=== PATIENT | female | born 1950 | race Caucasian/White ===

== ENCOUNTER 2018-07-11 22:10 | Inpatient (IN) | payer MEDICAID, MEDICARE, OTHER ==
[~2018-07-11] VITALS: Ht 162.6 cm; Wt 98.4 kg
[2018-07-12] VITALS (7 sets, daily range): BP systolic 133–152; BP diastolic 63–100
[2018-07-12] MEDS ORDERED: blood pressure med (01:06)
[2018-07-12] MEDS ORDERED: FLUO20CA16 PO (01:06)
[2018-07-12] MEDS ORDERED: folate (01:06)
[2018-07-12] MEDS ORDERED: B12/1TAB3 PO (01:06)
[2018-07-12] MEDS: ONDANSETRON PF 4 MG/2 ML VIAL. IV PRN ×2 (01:14→10:54)
[2018-07-12] MEDS: MORPHINE SULFATE 4 MG/ML VIAL. IV PRN ×5 (01:15→22:08)
[2018-07-12] MEDS: IV NORMAL SALINE 1000ML BAG 1,000 ML IV SCH ×3 (01:16→20:44)
[2018-07-12 04:23] LABS: HEMATOCRIT 39.5 % (36.0-47.0); HEMOGLOBIN 12.7 g/dL (12.0-15.5); RED BLOOD COUNT 4.47 x10^6/uL (3.50-5.40); RED CELL DISTRIBUTION WIDTH 15.1 % (11.5-14.5); WHITE BLOOD COUNT 14.9 x10^3/uL (4.0-11.0)
[2018-07-12 05:41] LABS: ALBUMIN 3.1 g/dL (3.4-5.0); ALBUMIN/GLOBULIN RATIO 0.7 (1.0-1.7); CALCIUM 9.1 mg/dL (8.5-10.1); CREATININE 1.2 mg/dL (0.6-1.0); GFR 44.7; POTASSIUM 4.7 mmol/L (3.5-5.1); TOTAL BILIRUBIN 1.5 mg/dL (0.2-1.0); TOTAL PROTEIN 7.8 g/dL (6.4-8.2)
--- NOTE | 2018-07-12 10:25 | PDOC2 ---
CONSULT Date of Consult Date of Consult DATE: 07/12/18 TIME: 10:21 Reason for Consult Reason for Consult: SBO Referring Physician Referring Physician: Meño Identification/Chief Complaint Chief Complaint abd pain Source Source: Chart review, Patient History of Present Illness Reason for Visit: 68 yo F with multiple colon resections, colostomy and takedown by Dr. Newsome , presents with c/o abd pain. Multiple previous episodes, treated with conservative measures, although has undergone previous xlaps. Admitted from [facility] ER and treated with NGT. Does report pain is improved today, but no flatus or stool. Past Medical History Cardiovascular: HTN Psych: Depression Past Surgical History Past Surgical History: Colectomy, Colon Resection, Other Family History Family History: No Significant Social History 1 pack per day Current Medications Current Medications Current Medications Sodium Chloride 1,000 ml @ 100 mls/hr Q10H IV Last administered on 07/12/18at 09:05; Start 07/12/18 at 00:45 Morphine Sulfate (Morphine Sulfate) 4 mg PRN Q4HRS PRN IV PAIN Last administered on 07/12/18at 06:56; Start 07/12/18 at 00:45 Ondansetron HCl (Zofran) 4 mg PRN Q4HRS PRN IV NAUSEA/VOMITING Last administered on 07/12/18at 01:14; Start 07/12/18 at 00:45 Active Scripts Active Reported [blood pressure med] [folate] Prozac (Fluoxetine Hcl) 20 Mg Capsule 1 Cap PO [id number] Folbic Rf Tablet (B12/Levomefolate Calcium/B-6) 1 Each Tablet 1 Each PO DAILY Allergies Allergies: Coded Allergies: No Known Drug Allergies (Unverified , 07/12/18) ROS Gastrointestinal: Yes Abdominal Pain Physical Exam General: Alert, Oriented X3, Cooperative, mild distress HEENT: Atraumatic Lungs: Normal air movement Abdomen: Soft, Other (mild TTP LLQ, obese, well healed surgical scars) Extremities: No clubbing, No cyanosis Skin: No rashes, No breakdown Neuro: Normal speech, Sensation intact Psych/Mental Status: Mental status NL, Mood NL Vitals VITALS Vital Signs Date Time Temp Pulse Resp B/P (MAP) Pulse Ox O2 Delivery O2 Flow Rate FiO2 07/12/18 07:35 Room Air 07/12/18 07:00 98.4 64 18 150/100 (117) 92 98.4 Labs Labs Laboratory Tests Test 07/12/18 03:25 White Blood Count 14.9 x10^3/uL (4.0-11.0) Red Blood Count 4.47 x10^6/uL (3.50-5.40) Hemoglobin 12.7 g/dL (12.0-15.5) Hematocrit 39.5 % (36.0-47.0) Mean Corpuscular Volume 89 fL (79-100) Mean Corpuscular Hemoglobin 29 pg (25-35) Mean Corpuscular Hemoglobin Concent 32 g/dL (31-37) Red Cell Distribution Width 15.1 % (11.5-14.5) Platelet Count 267 x10^3/uL (140-400) Sodium Level 143 mmol/L (136-145) Potassium Level 4.7 mmol/L (3.5-5.1) Chloride Level 105 mmol/L (98-107) Carbon Dioxide Level 28 mmol/L (21-32) Anion Gap 10 (6-14) Blood Urea Nitrogen 20 mg/dL (7-20) Creatinine 1.2 mg/dL (0.6-1.0) Estimated GFR (Cockcroft-Gault) 44.7 BUN/Creatinine Ratio 17 (6-20) Glucose Level 129 mg/dL (70-99) Calcium Level 9.1 mg/dL (8.5-10.1) Total Bilirubin 1.5 mg/dL (0.2-1.0) Aspartate Amino Transf (AST/SGOT) 33 U/L (15-37) Alanine Aminotransferase (ALT/SGPT) 25 U/L (14-59) Alkaline Phosphatase 129 U/L (46-116) Total Protein 7.8 g/dL (6.4-8.2) Albumin 3.1 g/dL (3.4-5.0) Albumin/Globulin Ratio 0.7 (1.0-1.7) Laboratory Tests Test 07/12/18 03:25 White Blood Count 14.9 x10^3/uL (4.0-11.0) Red Blood Count 4.47 x10^6/uL (3.50-5.40) Hemoglobin 12.7 g/dL (12.0-15.5) Hematocrit 39.5 % (36.0-47.0) Mean Corpuscular Volume 89 fL (79-100) Mean Corpuscular Hemoglobin 29 pg (25-35) Mean Corpuscular Hemoglobin Concent 32 g/dL (31-37) Red Cell Distribution Width 15.1 % (11.5-14.5) Platelet Count 267 x10^3/uL (140-400) Sodium Level 143 mmol/L (136-145) Potassium Level 4.7 mmol/L (3.5-5.1) Chloride Level 105 mmol/L (98-107) Carbon Dioxide Level 28 mmol/L (21-32) Anion Gap 10 (6-14) Blood Urea Nitrogen 20 mg/dL (7-20) Creatinine 1.2 mg/dL (0.6-1.0) Estimated GFR (Cockcroft-Gault) 44.7 BUN/Creatinine Ratio 17 (6-20) Glucose Level 129 mg/dL (70-99) Calcium Level 9.1 mg/dL (8.5-10.1) Total Bilirubin 1.5 mg/dL (0.2-1.0) Aspartate Amino Transf (AST/SGOT) 33 U/L (15-37) Alanine Aminotransferase (ALT/SGPT) 25 U/L (14-59) Alkaline Phosphatase 129 U/L (46-116) Total Protein 7.8 g/dL (6.4-8.2) Albumin 3.1 g/dL (3.4-5.0) Albumin/Globulin Ratio 0.7 (1.0-1.7) Images Images CT report from [facility] demonstrates evidence of multiple bowel resections and SBO Assessment/Plan Assessment/Plan SBO agree with NGT and supportive care will attempt to avoid surgery, given suspected hostile abd. if not improved by tomorrow, plan SBFT. Thanks for consult! MARNI AGUIAR MD Jul 12, 2018 10:25
--- NOTE | 2018-07-12 10:58 | HP ---
ADMIT DATE: 07/12/2018 HISTORY OF PRESENT ILLNESS: The patient is a 68-year-old female patient who presented to [facility] Emergency Room with a complaint of recurrent bouts of nausea, vomiting and abdominal pain that started about 24 hours prior to her arrival to the Emergency Room. She has had about 10 episodes of nonbloody vomiting, constant nausea and generalized abdominal pain. She has had a bowel movement before all the symptoms started and since then, she did not have any bowel movement or passed gas. The patient has had more than 10 surgeries and has 2 episodes of bowel obstruction due to adhesions, requiring exploration and adhesiolysis. She was evaluated in the Emergency Room of [facility] and was transferred to [facility] as her CT scan of the abdomen showed that the patient has small-bowel obstruction with transition point most likely in the distal small bowel, proximal to the ileocolic anastomosis. She was kept n.p.o. and has had an NG tube to intermittent suction, started on IV fluid, antiemetic and pain medication. PAST MEDICAL HISTORY: Significant for hypertension, hypothyroidism and bilateral cataract as well as bilateral carpal tunnel syndrome. PAST SURGICAL HISTORY: Significant for , exploratory laparotomy and adhesiolysis, cholecystectomy, appendectomy, total abdominal hysterectomy and bilateral salpingo-oophorectomy. She has had colostomy with revision and takedown, esophagogastroduodenoscopy, colonoscopy as well as carpal tunnel release. ALLERGIES: She has no known drug allergies. MEDICATIONS: She was on the following medications: She was on fluoxetine for Prozac 20 mg once a day. He was on folic acid 1 tablet once a day. FAMILY HISTORY: She has 2 brothers, . They were younger and one of a rare cancer and the other of myocardial infarction. She has 2 brothers and 1 sister still alive and healthy. Her father at the age of 60 because of lung cancer. Mother at the age of 64 because of diabetes complication. SOCIAL HISTORY: She is . She smokes 4 cigarettes a day. She drinks alcohol occasionally. Currently on disability. She has 2 daughters and one son. REVIEW OF SYSTEMS: The patient has had bilateral cataracts and was scheduled to have cataract extraction. Denied any glaucoma or macular degeneration. Denied any earache, tinnitus or sensorineural deafness. Denied nosebleeds, stuffy nose or postnasal drip. Denied any sore throat, sore tongue, toothache, hoarseness of voice or difficulty swallowing. She has obviously recurrent bouts of nausea, vomiting and abdominal pain. Constipation and had not passed any gas. PHYSICAL EXAMINATION: GENERAL: On arrival to the Emergency Room, she was obviously in pain and was in mild distress, but no pallor, jaundice or cyanosis from thyromegaly. No jugular venous distention. No lower limb edema. VITAL SIGNS: Her heart rate was 79, blood pressure was 143/66, temperature was 98.6, respiratory rate was 18 and oxygen saturation was 93%. HEENT: Examination of the head, eyes, ears, nose and throat showed normocephalic, atraumatic. She has had an NG tube to the left nostril to intermittent suction. NECK: Supple. HEART: Showed normal first and second heart sounds. No gallop, rub or murmur. CHEST: Clear to auscultation. No crepitation or rhonchi. ABDOMEN: Distended, soft and nontender. No guarding or rigidity. No organomegaly. All hernial orifices intact. Bowel sounds normal. NEUROLOGIC: She was awake, alert, responding appropriately. All cranial nerves intact. She moved extremities without difficulty. She normally ambulates without assistance or assistive devices. LABORATORY DATA: Her lab work this morning showed a white cell count 14,900, hemoglobin 12.7, hematocrit 39, MCV 89 and platelet count of 267,000. Her chemistry showed a serum sodium 143, potassium 4.7, chloride 105, bicarbonate 28, anion gap of 10, BUN 20, creatinine 1.2, estimated GFR was 44 mL per minute, her glucose 129 and calcium was 9.1. Total bilirubin is 1.5. AST and ALT were normal. Alkaline phosphatase slightly elevated. Her total protein was 7.8. Albumin was 2.1. Her CT scan showed small-bowel obstruction with transition point most likely in the distal small bowel, proximal to the ileocolic anastomosis. SUMMARY: The patient was kept n.p.o. with NG tube to suction, IV fluid, antiemetic and pain medication. We have consulted the surgical team. We will monitor her lab work closely and she spiked her temperature, we will start her on IV antibiotic. LAURIE LATHAM MD DR: ADRIANA/jac JOB#: [id number] / [id number]
[2018-07-12] MEDS: PIPERACILLIN/TAZOBACTAM 3.375 GM in IV NORMAL SALINE 50ML 50 ML IV SCH ×2 (14:00→22:08)
[2018-07-13 03:00] VITALS: BP 168/86
[2018-07-13 04:32] LABS: BASO % 0 % (0-3); EOS # 0.1 x10^3/uL (0.0-0.7); EOS % 1 % (0-3); HEMATOCRIT 36.1 % (36.0-47.0); HEMOGLOBIN 11.9 g/dL (12.0-15.5); LYMPH # 2.5 x10^3/uL (1.0-4.8); LYMPH % 29 % (24-48); MEAN CORPUSCULAR HEMOGLOBIN 29 pg (25-35); MEAN CORPUSCULAR HGB CONC 33 g/dL (31-37); MEAN CORPUSCULAR VOLUME 89 fL (79-100); MONO % 12 % (0-9); NEUT # 4.9 x10^3uL (1.8-7.7); NEUT % 58 % (31-73); PLATELET COUNT 205 x10^3/uL (140-400); RED BLOOD COUNT 4.08 x10^6/uL (3.50-5.40); RED CELL DISTRIBUTION WIDTH 15.4 % (11.5-14.5); WHITE BLOOD COUNT 8.6 x10^3/uL (4.0-11.0)
[2018-07-13 04:59] LABS: ALBUMIN 2.8 g/dL (3.4-5.0); ALBUMIN/GLOBULIN RATIO 0.7 (1.0-1.7); CALCIUM 8.3 mg/dL (8.5-10.1); CREATININE 1.5 mg/dL (0.6-1.0); GFR 34.5; POTASSIUM 4.5 mmol/L (3.5-5.1); TOTAL BILIRUBIN 1.8 mg/dL (0.2-1.0)
[2018-07-13] MEDS: MORPHINE SULFATE 4 MG/ML VIAL. IV PRN ×4 (05:38→23:18)
[2018-07-13] MEDS: PIPERACILLIN/TAZOBACTAM 3.375 GM in IV NORMAL SALINE 50ML 50 ML IV SCH ×3 (05:39→22:30)
[2018-07-13] MEDS: IV NORMAL SALINE 1000ML BAG 1,000 ML IV SCH ×3 (05:42→23:19)
[2018-07-13 07:00] VITALS: BP 148/65
--- NOTE | 2018-07-13 07:24 | RAD ---
KUB: INDICATION: NG tube placement. FINDINGS: NG tube is noted with its tip curled in the left upper quadrant of the abdomen consistent with tip projected in the fundus of the stomach. The bowel gas pattern is nonspecific with no evidence of bowel structure or ileus. IMPRESSION: NG tube tip projected over left upper quadrant of abdomen consistent with positioning in the fundus of the stomach. Nonspecific bowel gas pattern with no evidence of bowel obstruction or ileus. Electronically signed by: KRISTI DUKE MD (07/13/2018 7:21 AM) [facility]
--- NOTE | 2018-07-13 08:27 | PDOC ---
SURGICAL PROGRESS NOTE Subjective Pt reports feeling like "she got hit by a truck", but stomach feels better, passed some flatus and stool Vital Signs Vital Signs Date Time Temp Pulse Resp B/P (MAP) Pulse Ox O2 Delivery O2 Flow Rate FiO2 07/13/18 07:00 98.8 73 18 148/65 (92) 93 Room Air 98.8 I&O Intake and Output 07/13/18 06:59 Output Total 600 ml Balance -600 ml Output Gastric Drainage Total 600 ml # Voids 6 # Bowel Movements 2 General: Alert, Oriented X3, Cooperative, No acute distress Abdomen: Soft, No tenderness Labs Laboratory Tests Test 07/12/18 03:25 07/13/18 03:55 White Blood Count 14.9 x10^3/uL (4.0-11.0) 8.6 x10^3/uL (4.0-11.0) Red Blood Count 4.47 x10^6/uL (3.50-5.40) 4.08 x10^6/uL (3.50-5.40) Hemoglobin 12.7 g/dL (12.0-15.5) 11.9 g/dL (12.0-15.5) Hematocrit 39.5 % (36.0-47.0) 36.1 % (36.0-47.0) Mean Corpuscular Volume 89 fL (79-100) 89 fL (79-100) Mean Corpuscular Hemoglobin 29 pg (25-35) 29 pg (25-35) Mean Corpuscular Hemoglobin Concent 32 g/dL (31-37) 33 g/dL (31-37) Red Cell Distribution Width 15.1 % (11.5-14.5) 15.4 % (11.5-14.5) Platelet Count 267 x10^3/uL (140-400) 205 x10^3/uL (140-400) Sodium Level 143 mmol/L (136-145) 145 mmol/L (136-145) Potassium Level 4.7 mmol/L (3.5-5.1) 4.5 mmol/L (3.5-5.1) Chloride Level 105 mmol/L (98-107) 108 mmol/L (98-107) Carbon Dioxide Level 28 mmol/L (21-32) 26 mmol/L (21-32) Anion Gap 10 (6-14) 11 (6-14) Blood Urea Nitrogen 20 mg/dL (7-20) 35 mg/dL (7-20) Creatinine 1.2 mg/dL (0.6-1.0) 1.5 mg/dL (0.6-1.0) Estimated GFR (Cockcroft-Gault) 44.7 34.5 BUN/Creatinine Ratio 17 (6-20) 23 (6-20) Glucose Level 129 mg/dL (70-99) 114 mg/dL (70-99) Calcium Level 9.1 mg/dL (8.5-10.1) 8.3 mg/dL (8.5-10.1) Total Bilirubin 1.5 mg/dL (0.2-1.0) 1.8 mg/dL (0.2-1.0) Aspartate Amino Transf (AST/SGOT) 33 U/L (15-37) 24 U/L (15-37) Alanine Aminotransferase (ALT/SGPT) 25 U/L (14-59) 19 U/L (14-59) Alkaline Phosphatase 129 U/L (46-116) 107 U/L (46-116) Total Protein 7.8 g/dL (6.4-8.2) 7.0 g/dL (6.4-8.2) Albumin 3.1 g/dL (3.4-5.0) 2.8 g/dL (3.4-5.0) Albumin/Globulin Ratio 0.7 (1.0-1.7) 0.7 (1.0-1.7) Neutrophils (%) (Auto) 58 % (31-73) Lymphocytes (%) (Auto) 29 % (24-48) Monocytes (%) (Auto) 12 % (0-9) Eosinophils (%) (Auto) 1 % (0-3) Basophils (%) (Auto) 0 % (0-3) Neutrophils # (Auto) 4.9 x10^3uL (1.8-7.7) Lymphocytes # (Auto) 2.5 x10^3/uL (1.0-4.8) Monocytes # (Auto) 1.0 x10^3/uL (0.0-1.1) Eosinophils # (Auto) 0.1 x10^3/uL (0.0-0.7) Basophils # (Auto) 0.0 x10^3/uL (0.0-0.2) Lactate Dehydrogenase 123 U/L (81-234) Laboratory Tests Test 07/13/18 03:55 White Blood Count 8.6 x10^3/uL (4.0-11.0) Red Blood Count 4.08 x10^6/uL (3.50-5.40) Hemoglobin 11.9 g/dL (12.0-15.5) Hematocrit 36.1 % (36.0-47.0) Mean Corpuscular Volume 89 fL (79-100) Mean Corpuscular Hemoglobin 29 pg (25-35) Mean Corpuscular Hemoglobin Concent 33 g/dL (31-37) Red Cell Distribution Width 15.4 % (11.5-14.5) Platelet Count 205 x10^3/uL (140-400) Neutrophils (%) (Auto) 58 % (31-73) Lymphocytes (%) (Auto) 29 % (24-48) Monocytes (%) (Auto) 12 % (0-9) Eosinophils (%) (Auto) 1 % (0-3) Basophils (%) (Auto) 0 % (0-3) Neutrophils # (Auto) 4.9 x10^3uL (1.8-7.7) Lymphocytes # (Auto) 2.5 x10^3/uL (1.0-4.8) Monocytes # (Auto) 1.0 x10^3/uL (0.0-1.1) Eosinophils # (Auto) 0.1 x10^3/uL (0.0-0.7) Basophils # (Auto) 0.0 x10^3/uL (0.0-0.2) Sodium Level 145 mmol/L (136-145) Potassium Level 4.5 mmol/L (3.5-5.1) Chloride Level 108 mmol/L (98-107) Carbon Dioxide Level 26 mmol/L (21-32) Anion Gap 11 (6-14) Blood Urea Nitrogen 35 mg/dL (7-20) Creatinine 1.5 mg/dL (0.6-1.0) Estimated GFR (Cockcroft-Gault) 34.5 BUN/Creatinine Ratio 23 (6-20) Glucose Level 114 mg/dL (70-99) Calcium Level 8.3 mg/dL (8.5-10.1) Total Bilirubin 1.8 mg/dL (0.2-1.0) Aspartate Amino Transf (AST/SGOT) 24 U/L (15-37) Alanine Aminotransferase (ALT/SGPT) 19 U/L (14-59) Alkaline Phosphatase 107 U/L (46-116) Lactate Dehydrogenase 123 U/L (81-234) Total Protein 7.0 g/dL (6.4-8.2) Albumin 2.8 g/dL (3.4-5.0) Albumin/Globulin Ratio 0.7 (1.0-1.7) Problem List SBO, clinically improved, await XR from today will clamp NGT and try clears MARNI AGUIAR MD Jul 13, 2018 08:27
--- NOTE | 2018-07-13 08:48 | RAD ---
EXAM: Abdomen, single view. HISTORY: Nasogastric tube placement. COMPARISON: Radiograph obtained earlier on the same date. FINDINGS: A frontal view of the abdomen is obtained. There is a nasogastric tube within the proximal stomach with the side port at or near the gastroesophageal junction. There are prominent air-filled loops of bowel throughout the abdomen. IMPRESSION: 1. Nasogastric tube within the proximal stomach with the side-port at or near the gastroesophageal junction. 2. Prominent air-filled bowel throughout the abdomen. This is stable compared to the prior study. Electronically signed by: Adelaida Guzman MD (07/13/2018 8:45 AM) [place] [id number]
[2018-07-13 11:00] VITALS: BP 134/52
[2018-07-13 15:30] VITALS: BP 144/57
[2018-07-13 19:30] VITALS: BP 141/57
--- NOTE | 2018-07-13 19:39 | PN ---
DATE: 07/13/2018 SUBJECTIVE: The patient is resting slightly propped up in bed, in no apparent distress. On questioning her, she said she passed just gas, has not had any bowel movement. Her main complaint is sore throat, because of the NG tube which was clamped. She was seen by the surgeon and started her on clear liquid diet. PHYSICAL EXAMINATION: GENERAL: When I examined her, she looked well and was clearly in no apparent respiratory distress, pale, but no jaundice, cyanosis or thyromegaly. No jugular venous distention. No lower limb edema. VITAL SIGNS: Her heart rate was 73, blood pressure 148/65, temperature was 98.8, respiratory rate was 18 and oxygen saturation was 93%. HEAD, EYES, EARS, NOSE AND THROAT: Normocephalic, atraumatic. NECK: Supple. HEART: Normal first and second heart sounds. No gallop, rub or murmur. CHEST: Clear to auscultation. No crepitation or rhonchi. ABDOMEN: Distended, soft, nontender with audible bowel sounds. NEUROLOGIC: She is awake, alert, responding appropriately. All cranial nerves intact. She moves extremities without difficulty. Her intake and output are incompletely recorded. LABORATORY DATA: This morning showed serum sodium of 145, potassium 4.5, chloride 108, bicarbonate 26, anion gap of 11, BUN 35, creatinine 1.5, estimated GFR was 34 mL per minute. Her glucose was 114, calcium was 8.3. Total bilirubin is 1.8. AST, ALT, alkaline phosphatase were normal. Total protein 7, albumin 2.8. Her white cell count was 8.6, hemoglobin 12, hematocrit 36, MCV 89, and a platelet count of 205,000. ASSESSMENT: Multiple bowel resections and small-bowel obstruction. The patient had passed gas. Her NG tube was clamped. She has also acute on chronic kidney injury. Her creatinine has risen from 1.2-1.5 and BUN has risen from 20-35. I will probably increase her IV fluid to 125 and decide on further management accordingly. LAURIE LATHAM MD DR: ADRIANA/jac JOB#: [id number] / [id number]
[2018-07-13] MEDS: LACTOBACILLUS RHAMNOSUS GG 1 CAPSULE. PO SCH (21:00)
[2018-07-13 23:25] VITALS: BP 163/65
[2018-07-14] VITALS (7 sets, daily range): BP systolic 94–165; BP diastolic 53–69
[2018-07-14 05:06] LABS: GFR 55.1; POTASSIUM 3.7 mmol/L (3.5-5.1)
[2018-07-14] MEDS: PIPERACILLIN/TAZOBACTAM 3.375 GM in IV NORMAL SALINE 50ML 50 ML IV SCH ×3 (05:53→20:19)
[2018-07-14] MEDS: IV NORMAL SALINE 1000ML BAG 1,000 ML IV SCH (07:28)
[2018-07-14] MEDS: LACTOBACILLUS RHAMNOSUS GG 1 CAPSULE. PO SCH ×2 (08:25→20:18)
[2018-07-14] MEDS: POTASSIUM CL 40MEQ D5-0.45NACL 1,000 ML IV SCH ×2 (09:09→18:18)
[2018-07-14] MEDS: MORPHINE SULFATE 4 MG/ML VIAL. IV PRN ×3 (09:09→20:17)
--- NOTE | 2018-07-14 10:48 | PDOC ---
HALEY SANDHU ASSISTANT PRODUCT MANAGER 07/14/18 1047: SURGICAL PROGRESS NOTE Subjective some upper abdominal pain reports some flatus NG clamped, bothers throat taking some clears Vital Signs Vital Signs Date Time Temp Pulse Resp B/P (MAP) Pulse Ox O2 Delivery O2 Flow Rate FiO2 07/14/18 09:39 18 Room Air 07/14/18 07:00 97.7 63 165/53 (90) 94 97.7 I&O Intake and Output 07/14/18 07:00 Intake Total 645 ml Balance 645 ml Intake Oral 645 ml # Voids 8 General: Alert, Oriented X3, Cooperative, No acute distress HEENT: Other (ng in place) Abdomen: Soft, Other (difficult to determine if distended, large abdomen) Labs Laboratory Tests Test 07/13/18 03:55 07/14/18 03:50 White Blood Count 8.6 x10^3/uL (4.0-11.0) Red Blood Count 4.08 x10^6/uL (3.50-5.40) Hemoglobin 11.9 g/dL (12.0-15.5) Hematocrit 36.1 % (36.0-47.0) Mean Corpuscular Volume 89 fL (79-100) Mean Corpuscular Hemoglobin 29 pg (25-35) Mean Corpuscular Hemoglobin Concent 33 g/dL (31-37) Red Cell Distribution Width 15.4 % (11.5-14.5) Platelet Count 205 x10^3/uL (140-400) Neutrophils (%) (Auto) 58 % (31-73) Lymphocytes (%) (Auto) 29 % (24-48) Monocytes (%) (Auto) 12 % (0-9) Eosinophils (%) (Auto) 1 % (0-3) Basophils (%) (Auto) 0 % (0-3) Neutrophils # (Auto) 4.9 x10^3uL (1.8-7.7) Lymphocytes # (Auto) 2.5 x10^3/uL (1.0-4.8) Monocytes # (Auto) 1.0 x10^3/uL (0.0-1.1) Eosinophils # (Auto) 0.1 x10^3/uL (0.0-0.7) Basophils # (Auto) 0.0 x10^3/uL (0.0-0.2) Sodium Level 145 mmol/L (136-145) 144 mmol/L (136-145) Potassium Level 4.5 mmol/L (3.5-5.1) 3.7 mmol/L (3.5-5.1) Chloride Level 108 mmol/L (98-107) 109 mmol/L (98-107) Carbon Dioxide Level 26 mmol/L (21-32) 26 mmol/L (21-32) Anion Gap 11 (6-14) 9 (6-14) Blood Urea Nitrogen 35 mg/dL (7-20) 23 mg/dL (7-20) Creatinine 1.5 mg/dL (0.6-1.0) 1.0 mg/dL (0.6-1.0) Estimated GFR (Cockcroft-Gault) 34.5 55.1 BUN/Creatinine Ratio 23 (6-20) Glucose Level 114 mg/dL (70-99) 78 mg/dL (70-99) Calcium Level 8.3 mg/dL (8.5-10.1) 8.0 mg/dL (8.5-10.1) Total Bilirubin 1.8 mg/dL (0.2-1.0) Aspartate Amino Transf (AST/SGOT) 24 U/L (15-37) Alanine Aminotransferase (ALT/SGPT) 19 U/L (14-59) Alkaline Phosphatase 107 U/L (46-116) Lactate Dehydrogenase 123 U/L (81-234) Total Protein 7.0 g/dL (6.4-8.2) Albumin 2.8 g/dL (3.4-5.0) Albumin/Globulin Ratio 0.7 (1.0-1.7) Laboratory Tests Test 07/14/18 03:50 Sodium Level 144 mmol/L (136-145) Potassium Level 3.7 mmol/L (3.5-5.1) Chloride Level 109 mmol/L (98-107) Carbon Dioxide Level 26 mmol/L (21-32) Anion Gap 9 (6-14) Blood Urea Nitrogen 23 mg/dL (7-20) Creatinine 1.0 mg/dL (0.6-1.0) Estimated GFR (Cockcroft-Gault) 55.1 Glucose Level 78 mg/dL (70-99) Calcium Level 8.0 mg/dL (8.5-10.1) Problem List will check xrays, if no significant distention dc ng MARNI AGUIAR MD 07/14/18 1136: SURGICAL PROGRESS NOTE Assessment/Plan Pt seen and examined. Agree with Ms. sandhu's note Pt with c/o NGT, no N/V with NGT clamped by a day, passing flatus, small stool abd soft, obese, NTTP KUB report pending, but appears stable will d/c NGT and continue clears if pt does not tolerate, may need to consider SBFT poor surgical candidate, given multiple previous surgeries HALEY SANDHU APRN Jul 14, 2018 10:47 MARNI AGUIAR MD Jul 14, 2018 11:36
--- NOTE | 2018-07-14 17:42 | RAD ---
Portable AP supine view of the abdomen with upright view Clinical indications: Small bowel obstruction. Follow up study. COMPARISON: July 13, 2018. IMPRESSION: Dilated small bowel loops are again noted centrally which are unchanged. Small air-fluid levels are seen. No free to peritoneal air is seen. NG tube tip is seen within the fundus of the stomach. IMPRESSION: Unchanged small bowel obstruction. Electronically signed by: Sonny Levy MD (07/14/2018 5:39 PM) [facility]
--- NOTE | 2018-07-14 21:33 | PN ---
DATE: 07/14/2018 SUBJECTIVE: The patient is sitting slightly propped up in bed, no apparent distress. Her NG tube is still clamped. She said that she has passed gas; although, she has not had any bowel movement. The pain is generally much better, although she continued to be tender around the umbilical area. She denied any nausea or vomiting. OBJECTIVE: GENERAL: When I examined her, she looked well and was clearly in no apparent respiratory distress. No pallor, jaundice, cyanosis, or thyromegaly. No jugular venous distension. No lower limb edema. VITAL SIGNS: Her heart rate was 64, blood pressure was 155/58, temperature was 98.6, respiratory rate was 18 and oxygen saturation was 91%. HEAD, EYES, EARS, NOSE AND THROAT: Showed normocephalic, atraumatic. She had an NG tube through the right nostril. NECK: Supple. CARDIAC: Normal first and second heart sounds. No gallop, rub or murmur. CHEST: Clear to auscultation. No crepitation or rhonchi. ABDOMEN: Distended, soft with some tenderness around the umbilical area. No guarding or rigidity. No organomegaly. Bowel sounds normal. NEUROLOGIC: She is awake, alert, responding appropriately. All cranial nerves intact. She moves extremities without difficulty. She ambulates without assistance or assistive devices. Her intake over the last 24 hours was incompletely recorded, output was 600. LABORATORY DATA: Her lab work this morning showed that her white cell count was 8600, hemoglobin 12, hematocrit 36, MCV 89, and platelet count 205,000. Her chemistry showed a serum sodium 144, potassium 3.7, chloride 109, bicarbonate 26, anion gap of 9, BUN 23, creatinine 1, estimated GFR was 55 mL per minute. Her glucose was 78 and calcium was 8. ASSESSMENT: 1. Small-bowel obstruction, probably resolving. The patient is passing gas. The NG tube is clamped. 2. Acute on chronic kidney injury, resolving. Her creatinine came down from 1.5-1. 3. Hypokalemia. PLAN: My plan is to change IV fluid to D5 half normal with 40 mEq of potassium. LAURIE LATHAM MD DR: ADRIANA/jac JOB#: [id number] / [id number]
[2018-07-15] MEDS: MORPHINE SULFATE 4 MG/ML VIAL. IV PRN ×4 (01:29→18:45)
[2018-07-15 03:00] VITALS: BP 106/68
[2018-07-15] MEDS: POTASSIUM CL 40MEQ D5-0.45NACL 1,000 ML IV SCH ×2 (04:30→16:37)
[2018-07-15 04:54] LABS: HEMATOCRIT 30.2 % (36.0-47.0); HEMOGLOBIN 9.8 g/dL (12.0-15.5); RED BLOOD COUNT 3.42 x10^6/uL (3.50-5.40); RED CELL DISTRIBUTION WIDTH 14.2 % (11.5-14.5); WHITE BLOOD COUNT 5.6 x10^3/uL (4.0-11.0)
[2018-07-15] MEDS: PIPERACILLIN/TAZOBACTAM 3.375 GM in IV NORMAL SALINE 50ML 50 ML IV SCH (05:08)
[2018-07-15 05:14] LABS: CREATININE 0.8 mg/dL (0.6-1.0); GFR 71.3
[2018-07-15 07:00] VITALS: BP 153/66
--- NOTE | 2018-07-15 09:50 | PDOC ---
HALEY NOYOLA COMMUNITY ASSOCIATE 07/15/18 0950: SURGICAL PROGRESS NOTE Subjective some abdominal tightness this AM no emesis taking clears + flatus Vital Signs Vital Signs Date Time Temp Pulse Resp B/P (MAP) Pulse Ox O2 Delivery O2 Flow Rate FiO2 07/15/18 07:00 98.0 57 20 153/66 (95) 95 Room Air 98.0 07/14/18 20:17 96.0 I&O Intake and Output 07/15/18 06:59 Intake Total 1046 ml Balance 1046 ml IV Total 1046 ml # Voids 5 General: Alert, Oriented X3, Cooperative, No acute distress Abdomen: Soft, Other (ttp upper abdomen) Labs Laboratory Tests Test 07/14/18 03:50 07/15/18 03:25 Sodium Level 144 mmol/L (136-145) 140 mmol/L (136-145) Potassium Level 3.7 mmol/L (3.5-5.1) 4.0 mmol/L (3.5-5.1) Chloride Level 109 mmol/L (98-107) 108 mmol/L (98-107) Carbon Dioxide Level 26 mmol/L (21-32) 24 mmol/L (21-32) Anion Gap 9 (6-14) 8 (6-14) Blood Urea Nitrogen 23 mg/dL (7-20) 10 mg/dL (7-20) Creatinine 1.0 mg/dL (0.6-1.0) 0.8 mg/dL (0.6-1.0) Estimated GFR (Cockcroft-Gault) 55.1 71.3 Glucose Level 78 mg/dL (70-99) 111 mg/dL (70-99) Calcium Level 8.0 mg/dL (8.5-10.1) 8.0 mg/dL (8.5-10.1) White Blood Count 5.6 x10^3/uL (4.0-11.0) Red Blood Count 3.42 x10^6/uL (3.50-5.40) Hemoglobin 9.8 g/dL (12.0-15.5) Hematocrit 30.2 % (36.0-47.0) Mean Corpuscular Volume 88 fL (79-100) Mean Corpuscular Hemoglobin 29 pg (25-35) Mean Corpuscular Hemoglobin Concent 33 g/dL (31-37) Red Cell Distribution Width 14.2 % (11.5-14.5) Platelet Count 155 x10^3/uL (140-400) Laboratory Tests Test 07/15/18 03:25 White Blood Count 5.6 x10^3/uL (4.0-11.0) Red Blood Count 3.42 x10^6/uL (3.50-5.40) Hemoglobin 9.8 g/dL (12.0-15.5) Hematocrit 30.2 % (36.0-47.0) Mean Corpuscular Volume 88 fL (79-100) Mean Corpuscular Hemoglobin 29 pg (25-35) Mean Corpuscular Hemoglobin Concent 33 g/dL (31-37) Red Cell Distribution Width 14.2 % (11.5-14.5) Platelet Count 155 x10^3/uL (140-400) Sodium Level 140 mmol/L (136-145) Potassium Level 4.0 mmol/L (3.5-5.1) Chloride Level 108 mmol/L (98-107) Carbon Dioxide Level 24 mmol/L (21-32) Anion Gap 8 (6-14) Blood Urea Nitrogen 10 mg/dL (7-20) Creatinine 0.8 mg/dL (0.6-1.0) Estimated GFR (Cockcroft-Gault) 71.3 Glucose Level 111 mg/dL (70-99) Calcium Level 8.0 mg/dL (8.5-10.1) Assessment/Plan will continue clears today reeval in AM QIAN ALVAREZ MD 07/16/18 1217: SURGICAL PROGRESS NOTE Assessment/Plan Agree with above HALEY NOYOLA APRN Jul 15, 2018 09:50 QIAN ALVAREZ MD Jul 16, 2018 12:17
[2018-07-15] MEDS: LACTOBACILLUS RHAMNOSUS GG 1 CAPSULE. PO SCH ×2 (09:55→21:17)
[2018-07-15 11:00] VITALS: BP 150/59
[2018-07-15 15:00] VITALS: BP 161/63
[2018-07-15 19:30] VITALS: BP 176/62
[2018-07-15] MEDS: ONDANSETRON PF 4 MG/2 ML VIAL. IV PRN (20:04)
--- NOTE | 2018-07-15 20:27 | PN ---
DATE: 07/15/2018 SUBJECTIVE: The patient is resting slightly propped up in bed, in no apparent distress. She is awake, alert. Her NG tube was removed. She is now on a clear liquid diet. She has passed gas multiple times, has not had any bowel movement. She did have mild abdominal discomfort. PHYSICAL EXAMINATION: GENERAL: When I examined her, she looked pale, but no jaundice, cyanosis or thyromegaly. No jugular venous distension. No lower limb edema. VITAL SIGNS: Her heart rate was 58, blood pressure was 106/68, temperature was 99.1, respiratory rate was 18 and oxygen saturation was 93%. HEAD, EYES, EARS, NOSE AND THROAT: Showed normocephalic, atraumatic. NECK: Supple. HEART: Showed first and second heart sounds. No gallop, rub or murmur. CHEST: Clear to auscultation. No crepitation or rhonchi. ABDOMEN: Distended, soft with mild tenderness. No guarding or rigidity. No organomegaly. All hernial orifice intact. Bowel sounds normal. NEUROLOGIC: She is awake, alert, responding appropriately. All cranial nerves intact. She moves extremities without difficulty. She ambulates without assistance or assistive devices. Her intake and output are incompletely recorded. LABORATORY DATA: This morning showed a serum sodium 140, potassium 4, chloride 108, bicarbonate 24, anion gap of 8, BUN 10, creatinine 0.8, estimated GFR was 71 mL per minute. Her glucose 111, calcium was 8. White cell count was 5600, hemoglobin 10, hematocrit 30, MCV 88 and platelet count of 155,000. ASSESSMENT: 1. Small-bowel obstruction, resolving. The patient is passing gas. NG tube is removed. She is now on a clear liquid diet. 2. Acute on chronic kidney injury, resolving. Her creatinine is down from 1.5-0.8. 3. Hypokalemia, resolved. Her potassium is 4 mEq per liter. PLAN: To continue the IV fluid, continue with clear liquid diet and advance diet as per surgical team. LAURIE LATHAM MD DR: ADRIANA/jac JOB#: [id number] / [id number]
[2018-07-15] MEDS: AMOXICILLIN/K CLAV 875/125MG TABLET. PO SCH (21:17)
[2018-07-15 23:00] VITALS: BP 156/72
[2018-07-16] MEDS: MORPHINE SULFATE 4 MG/ML VIAL. IV PRN ×4 (00:37→19:36)
[2018-07-16] MEDS: POTASSIUM CL 40MEQ D5-0.45NACL 1,000 ML IV SCH ×2 (00:43→10:30)
[2018-07-16 03:15] VITALS: BP 161/54
[2018-07-16 07:00] VITALS: BP 183/63
[2018-07-16] MEDS: LACTOBACILLUS RHAMNOSUS GG 1 CAPSULE. PO SCH ×2 (08:42→21:00)
[2018-07-16] MEDS: AMOXICILLIN/K CLAV 875/125MG TABLET. PO SCH ×2 (08:42→21:00)
[2018-07-16] MEDS: ONDANSETRON PF 4 MG/2 ML VIAL. IV PRN ×3 (08:49→19:50)
--- NOTE | 2018-07-16 10:07 | PDOC ---
HALEY NOYOLA ADJUSTER 07/16/18 1007: SURGICAL PROGRESS NOTE Subjective more nausea and pain minimal flatus now feels more bloated Vital Signs Vital Signs Date Time Temp Pulse Resp B/P (MAP) Pulse Ox O2 Delivery O2 Flow Rate FiO2 07/16/18 09:12 Room Air 07/16/18 07:00 97.9 55 18 183/63 (103) 95 97.9 07/16/18 01:30 96.0 I&O Intake and Output 07/16/18 07:00 Intake Total 480 ml Balance 480 ml Intake Oral 480 ml # Voids 5 General: Alert, Oriented X3, Cooperative, No acute distress Abdomen: Soft, Other (tender upper abdomen) Labs Laboratory Tests Test 07/15/18 03:25 White Blood Count 5.6 x10^3/uL (4.0-11.0) Red Blood Count 3.42 x10^6/uL (3.50-5.40) Hemoglobin 9.8 g/dL (12.0-15.5) Hematocrit 30.2 % (36.0-47.0) Mean Corpuscular Volume 88 fL (79-100) Mean Corpuscular Hemoglobin 29 pg (25-35) Mean Corpuscular Hemoglobin Concent 33 g/dL (31-37) Red Cell Distribution Width 14.2 % (11.5-14.5) Platelet Count 155 x10^3/uL (140-400) Sodium Level 140 mmol/L (136-145) Potassium Level 4.0 mmol/L (3.5-5.1) Chloride Level 108 mmol/L (98-107) Carbon Dioxide Level 24 mmol/L (21-32) Anion Gap 8 (6-14) Blood Urea Nitrogen 10 mg/dL (7-20) Creatinine 0.8 mg/dL (0.6-1.0) Estimated GFR (Cockcroft-Gault) 71.3 Glucose Level 111 mg/dL (70-99) Calcium Level 8.0 mg/dL (8.5-10.1) Assessment/Plan NPO, start SBFt today QIAN ALVAREZ MD 07/16/18 1217: SURGICAL PROGRESS NOTE Assessment/Plan Agree with above HALEY NOYOLA APRN Jul 16, 2018 10:07 QIAN ALVAREZ MD Jul 16, 2018 12:17
[2018-07-16] MEDS ORDERED: CONTRAST GIVEN. MC PRN (10:15)
[2018-07-16] MEDS ORDERED: IOHEXOL 300 MG/ML 100ML VIAL. PO ONE (10:15)
[2018-07-16 15:00] VITALS: BP 190/72
--- NOTE | 2018-07-16 16:05 | RAD ---
Examination: Small bowel series HISTORY: History of small bowel obstruction. COMPARISON: Abdomen radiograph from 07/14/2018 FINDINGS: Sed Special Education Teacher image demonstrates distended and dilated small bowel loops. Contrast is identified in the stomach and small bowel. Dilated small bowel loops identified in the proximal and midportion. Some of the contrast extends into the colon by 60 minutes. IMPRESSION: Findings consistent with small bowel obstruction with dilated small bowel loops in the proximal and midportion. The site of obstruction is possibly in the right lower quadrant similar to recent CT scan. However, some of the contrast extends from the small bowel into the colon. Total fluoroscopic time 0.3 minutes. Total fluoroscopic images 2 Electronically signed by: Kirill Dietz MD (07/16/2018 4:02 PM) [facility]
[2018-07-16] MEDS ORDERED: BENZOCAINE ONE 20% MUCOSAL SPRAY. MM (17:00)
[2018-07-16] MEDS: ONDANSETRON ODT 4 MG TAB.RAPDIS. PO PRN (17:34)
[2018-07-16 19:00] VITALS: BP 128/60
[2018-07-16] MEDS: hydrALAZINE 20 MG/ML VIAL. IVP PRN (20:27)
--- NOTE | 2018-07-16 21:00 | PN ---
DATE: 07/16/2018 SUBJECTIVE: The patient is sitting slightly propped up in bed, in no apparent respiratory distress. She is awake, alert, and she stated that she had a rough night, had lot of abdominal pain, had also some nausea, but no vomiting. She has passed some flatus, but not much. No bowel movement yet. PHYSICAL EXAMINATION: GENERAL: When I examined her, she looked pale. No jaundiced or cyanosed. No thyromegaly. No jugular venous distension. No limb edema. VITAL SIGNS: Her heart rate was 59, blood pressure was 161/54. Her temperature was 98.6, respiratory rate was 16, and oxygen saturation was 95%. HEAD, EYES, EARS, NOSE AND THROAT: Showed normocephalic, atraumatic. NECK: Supple. HEART: Showed normal first and second heart sounds. No gallop, rub or murmur. CHEST: Clear to auscultation. No crepitation or rhonchi. ABDOMEN: Distended with tenderness mostly in the left lower quadrant. No guarding or rigidity. No organomegaly. Bowel sounds are audible. NEUROLOGIC: She is awake, alert, responding appropriately. All cranial nerves intact. She moves extremities without difficulty. Her intake over the last 24 hours was 1050. No output was recorded. LABORATORY DATA: As of this morning, her lab work showed white cell count 5600, hemoglobin 10, hematocrit 30, MCV 88 and platelet count of 155,000. Her chemistry showed that her serum sodium 140, potassium 4, chloride 108, bicarbonate 24, anion gap of 8, BUN 10, creatinine 0.8, estimated GFR was 71 mL per minute. Her glucose 111, calcium was 8. ASSESSMENT: 1. Small-bowel obstruction, resolving slowly. The patient continued to have abdominal pain, has had some nausea last night. Her NG tube was obviously removed. She continued to be on a clear liquid diet. 2. Acute on chronic kidney injury, resolving. Her creatinine is down from 1.5-0.8. 3. Hypokalemia, resolved. Her potassium is up to 4 mEq per liter. PLAN: To continue with IV fluid, continue with oral antibiotic, and continue with pain management. LAURIE LATHAM MD DR: ADRIANA/jac JOB#: [id number] / [id number]
[2018-07-16 22:52] VITALS: BP 180/77
[2018-07-17 02:43] VITALS: BP 157/66
[2018-07-17] MEDS: POTASSIUM CL 40MEQ D5-0.45NACL 1,000 ML IV SCH ×3 (03:23→17:34)
[2018-07-17 04:47] LABS: HEMATOCRIT 35.3 % (36.0-47.0); HEMOGLOBIN 11.6 g/dL (12.0-15.5); RED BLOOD COUNT 3.99 x10^6/uL (3.50-5.40); RED CELL DISTRIBUTION WIDTH 14.8 % (11.5-14.5); WHITE BLOOD COUNT 7.5 x10^3/uL (4.0-11.0)
[2018-07-17 05:09] LABS: CREATININE 0.8 mg/dL (0.6-1.0); GFR 71.3
[2018-07-17 05:10] LABS: POTASSIUM 4.2 mmol/L (3.5-5.1)
[2018-07-17 07:00] VITALS: BP 187/74
[2018-07-17] MEDS: hydrALAZINE 20 MG/ML VIAL. IVP PRN ×3 (07:41→19:49)
--- NOTE | 2018-07-17 08:39 | RAD ---
EXAM: Abdomen, 2 views. HISTORY: Small bowel obstruction. COMPARISON: 07/16/2018 FINDINGS: Frontal upright and supine views of the abdomen are obtained. There are distended contrast and air-filled loops of proximal and mid small bowel containing air-fluid levels on the upright view. There is slight decompression of the distal small bowel. Their is also contrast within the colon extending to the rectal vault. No clear transition point is seen. There is no free air. IMPRESSION: No significant change in distended loops of proximal and mid small bowel, with relative decompression of the distal small bowel. There has been interval transit of contrast into the colon. Electronically signed by: Adelaida Guzman MD (07/17/2018 8:36 AM) [id number]
[2018-07-17] MEDS: AMOXICILLIN/K CLAV 875/125MG TABLET. PO SCH ×2 (08:48→21:04)
[2018-07-17] MEDS: LACTOBACILLUS RHAMNOSUS GG 1 CAPSULE. PO SCH ×2 (08:48→21:05)
--- NOTE | 2018-07-17 10:36 | PDOC ---
HALEY NOYOLA GRAPPLER 07/17/18 1036: SURGICAL PROGRESS NOTE Subjective some loose stools was unable to place NG Vital Signs Vital Signs Date Time Temp Pulse Resp B/P (MAP) Pulse Ox O2 Delivery O2 Flow Rate FiO2 07/17/18 07:41 69 187/74 07/17/18 07:05 Room Air 07/17/18 07:00 98.2 18 97 98.2 I&O Intake and Output 07/17/18 06:59 Intake Total 220 ml Balance 220 ml Intake Oral 220 ml # Voids 6 # Bowel Movements 4 General: Alert, Oriented X3, Cooperative, No acute distress Abdomen: Soft, Other (tender upper abdomen ) Labs Laboratory Tests Test 07/17/18 03:55 White Blood Count 7.5 x10^3/uL (4.0-11.0) Red Blood Count 3.99 x10^6/uL (3.50-5.40) Hemoglobin 11.6 g/dL (12.0-15.5) Hematocrit 35.3 % (36.0-47.0) Mean Corpuscular Volume 89 fL (79-100) Mean Corpuscular Hemoglobin 29 pg (25-35) Mean Corpuscular Hemoglobin Concent 33 g/dL (31-37) Red Cell Distribution Width 14.8 % (11.5-14.5) Platelet Count 223 x10^3/uL (140-400) Sodium Level 144 mmol/L (136-145) Potassium Level 4.2 mmol/L (3.5-5.1) Chloride Level 107 mmol/L (98-107) Carbon Dioxide Level 24 mmol/L (21-32) Anion Gap 13 (6-14) Blood Urea Nitrogen 6 mg/dL (7-20) Creatinine 0.8 mg/dL (0.6-1.0) Estimated GFR (Cockcroft-Gault) 71.3 Glucose Level 114 mg/dL (70-99) Calcium Level 9.0 mg/dL (8.5-10.1) Laboratory Tests Test 07/17/18 03:55 White Blood Count 7.5 x10^3/uL (4.0-11.0) Red Blood Count 3.99 x10^6/uL (3.50-5.40) Hemoglobin 11.6 g/dL (12.0-15.5) Hematocrit 35.3 % (36.0-47.0) Mean Corpuscular Volume 89 fL (79-100) Mean Corpuscular Hemoglobin 29 pg (25-35) Mean Corpuscular Hemoglobin Concent 33 g/dL (31-37) Red Cell Distribution Width 14.8 % (11.5-14.5) Platelet Count 223 x10^3/uL (140-400) Sodium Level 144 mmol/L (136-145) Potassium Level 4.2 mmol/L (3.5-5.1) Chloride Level 107 mmol/L (98-107) Carbon Dioxide Level 24 mmol/L (21-32) Anion Gap 13 (6-14) Blood Urea Nitrogen 6 mg/dL (7-20) Creatinine 0.8 mg/dL (0.6-1.0) Estimated GFR (Cockcroft-Gault) 71.3 Glucose Level 114 mg/dL (70-99) Calcium Level 9.0 mg/dL (8.5-10.1) Problem List noted xrays some passage of contrast will review with MARNI Sepulveda MD 07/17/18 1415: SURGICAL PROGRESS NOTE Assessment/Plan Pt seen and examined. Agree with Ms. Noyola's note Pt reports feeling much better today, no significant pain, min nausea, multiple loose stools abd soft, NTTP, obese d/w pt operative intervention, but appropriates pt wishes to continue non operative management, which is appropriate will start clears. HALEY NOYOLA APRN Jul 17, 2018 10:36 MARNI AGUIAR MD Jul 17, 2018 14:15
[2018-07-17 11:00] VITALS: BP 150/54
[2018-07-17 15:00] VITALS: BP 181/62
[2018-07-17] MEDS: MORPHINE SULFATE 4 MG/ML VIAL. IV PRN ×3 (15:38→23:32)
[2018-07-17] MEDS ORDERED: HYDROmorphone 2 MG/ML VIAL IV PRN (16:45)
[2018-07-17] MEDS ORDERED: VANCOMYCIN PER PHARMACY MC PRN (16:45)
[2018-07-17] MEDS ORDERED: ONDANSETRON PF 4 MG/2 ML VIAL. IV PRN (16:45)
[2018-07-17] MEDS ORDERED: VANCOMYCIN 1.25 GM in IV NORMAL SALINE 250ML 250 ML IV SCH (16:45)
[2018-07-17] MEDS ORDERED: PIPERACILLIN/TAZOBACTAM 4.5 GM in IV NORMAL SALINE 100ML 100 ML IV SCH (18:00)
[2018-07-17 19:26] VITALS: BP 184/72
[2018-07-17] MEDS ORDERED: NIFE60TA14 PO (20:43)
[2018-07-17] MEDS ORDERED: AMLO2.5T5 PO (20:43)
[2018-07-17] MEDS ORDERED: NON FORMULARY ITEM PO SCH (21:00)
[2018-07-17] MEDS ORDERED: LACTOBACILLUS RHAMNOSUS GG 1 CAPSULE. PO SCH (21:00)
[2018-07-17] MEDS: amLODIPine BESYLATE 5 MG TABLET PO SCH (21:05)
[2018-07-17 23:29] VITALS: BP_SYST 175; BP_SYST 189; BP_DIAS 64; BP_DIAS 74
--- NOTE | 2018-07-18 02:09 | PN ---
DATE: 07/17/2018 SUBJECTIVE: The patient is resting slightly propped up in bed, in no apparent respiratory distress. She apparently has had multiple episodes of nausea, vomiting last night. We attempted to put an NG tube back, but she could not tolerate it; however, she is doing much better this morning. She has had at least 3 episodes of diarrhea and has denied any abdominal pain. Denied any nausea or vomiting. OBJECTIVE: GENERAL: When I examined her, she looked well and was clearly in no apparent respiratory distress, pale, not jaundiced, cyanosed. No thyromegaly. No jugular venous distension. No lower limb edema. VITAL SIGNS: Her heart rate was 67, blood pressure was 187/74, temperature was 98.2, respiratory rate was 18 and oxygen saturation was 97%. HEAD, EYES, EARS, NOSE AND THROAT: Showed normocephalic, atraumatic. NECK: Supple. HEART: Normal first and second sounds. No gallop, rub or murmur. CHEST: Showed central trachea, equal bilateral expansion, air entry, vesicular sounds. No crepitation or rhonchi. ABDOMEN: Distended, soft, nontender. NEUROLOGIC: She is awake, alert, responding appropriately. Her intake was 418, no output was recorded. LABORATORY DATA: As of this morning, her serum sodium was 144, potassium 4.2, chloride 107, bicarbonate 24, anion gap of 13, BUN 6, creatinine 0.8, estimated GFR was 71 mL per minute. Her glucose was 114 and calcium was 9. Her white cell count was 7500, hemoglobin 12, hematocrit 35, MCV 89 and platelet count 223,000. ASSESSMENT: 1. Small bowel obstruction. This seems to be resolving. She has had no abdominal pain this morning. She did have multiple episodes of nausea and vomiting yesterday and we have nearly place another NG tube; however, she could not tolerate it. 2. Acute on chronic kidney injury, resolving. Her creatinine is down from 1.5 to 0.8. 3. Hypokalemia, resolved. Potassium is up to 4 mEq per liter. PLAN: My plan is to await the surgical evaluation. Her blood pressures continue to be suboptimally controlled and I will reconcile all her medication. LAURIE LATHAM MD DR: ADRIANA/jac JOB#: [id number] / [id number]
[2018-07-18 03:25] VITALS: BP 148/63
[2018-07-18] MEDS: POTASSIUM CL 40MEQ D5-0.45NACL 1,000 ML IV SCH ×3 (04:11→22:43)
[2018-07-18 07:00] VITALS: BP 141/63
[2018-07-18] MEDS ORDERED: LIDOCAINE 1% PF 2 ML VIAL. ID PRN (07:00)
[2018-07-18] MEDS ORDERED: ONDANSETRON PF 4 MG/2 ML VIAL. IV PRN (07:00)
[2018-07-18] MEDS ORDERED: PROCHLORPERAZINE 10 MG/2 ML VIAL. IV PRN (07:00)
[2018-07-18] MEDS ORDERED: IV RINGERS,LACTATED 1000ML 1,000 ML IV SCH (07:00)
[2018-07-18] MEDS ORDERED: MORPHINE SULFATE 2 MG/ML VIAL. IV PRN (07:00)
[2018-07-18] MEDS ORDERED: HYDROmorphone 2 MG/ML VIAL IV PRN (07:00)
[2018-07-18] MEDS ORDERED: fentaNYL PF VIAL 100 MCG/2 ML VIAL IV PRN ×2 (07:00)
[2018-07-18] MEDS: FLUoxetine HCL 20 MG CAPSULE PO SCH (08:00)
[2018-07-18] MEDS: AMOXICILLIN/K CLAV 875/125MG TABLET. PO SCH ×2 (08:56→20:41)
[2018-07-18] MEDS: amLODIPine BESYLATE 5 MG TABLET PO SCH (08:56)
[2018-07-18] MEDS: LACTOBACILLUS RHAMNOSUS GG 1 CAPSULE. PO SCH ×2 (08:56→20:41)
[2018-07-18] MEDS ORDERED: NON FORMULARY ITEM (Nifedipine (Nifedipine Er) 90 MG) PO SCH (09:00)
--- NOTE | 2018-07-18 09:21 | PDOC ---
HALEY NOYOLA COFFEE SOMMELIER 07/18/18 0921: SURGICAL PROGRESS NOTE Subjective tolerated clears + flatus no bloating Vital Signs Vital Signs Date Time Temp Pulse Resp B/P (MAP) Pulse Ox O2 Delivery O2 Flow Rate FiO2 07/18/18 08:56 72 141/63 07/18/18 07:20 Room Air 07/18/18 07:00 98.1 16 96 98.1 07/17/18 20:00 96.0 I&O Intake and Output 07/18/18 07:00 Intake Total 300 ml Balance 300 ml Intake Oral 300 ml # Voids 2 General: Alert, Oriented X3, Cooperative, No acute distress Abdomen: Soft, Other (ND, NTTP) Labs Laboratory Tests Test 07/17/18 03:55 White Blood Count 7.5 x10^3/uL (4.0-11.0) Red Blood Count 3.99 x10^6/uL (3.50-5.40) Hemoglobin 11.6 g/dL (12.0-15.5) Hematocrit 35.3 % (36.0-47.0) Mean Corpuscular Volume 89 fL (79-100) Mean Corpuscular Hemoglobin 29 pg (25-35) Mean Corpuscular Hemoglobin Concent 33 g/dL (31-37) Red Cell Distribution Width 14.8 % (11.5-14.5) Platelet Count 223 x10^3/uL (140-400) Sodium Level 144 mmol/L (136-145) Potassium Level 4.2 mmol/L (3.5-5.1) Chloride Level 107 mmol/L (98-107) Carbon Dioxide Level 24 mmol/L (21-32) Anion Gap 13 (6-14) Blood Urea Nitrogen 6 mg/dL (7-20) Creatinine 0.8 mg/dL (0.6-1.0) Estimated GFR (Cockcroft-Gault) 71.3 Glucose Level 114 mg/dL (70-99) Calcium Level 9.0 mg/dL (8.5-10.1) Problem List KUB pending if improved, possible advance diet MARNI AGUIAR MD 07/18/18 1158: SURGICAL PROGRESS NOTE Assessment/Plan Pt seen and examined. Agree with Ms. Noyola's note Pt feels better, min pain, no n/v, passing flatus and stools abd soft, obese, NTTP await KUB, but will avoid surgery today. HALEY NOYOLA APRN Jul 18, 2018 09:21 MARNI AGUIAR MD Jul 18, 2018 11:58
[2018-07-18 11:00] VITALS: BP 150/61
[2018-07-18] MEDS ORDERED: NIFE90TA9 PO (13:11)
[2018-07-18] MEDS: MORPHINE SULFATE 4 MG/ML VIAL. IV PRN ×3 (13:13→22:46)
[2018-07-18 15:00] VITALS: BP 172/67
[2018-07-18] MEDS: hydrALAZINE 20 MG/ML VIAL. IVP PRN (15:35)
--- NOTE | 2018-07-18 16:36 | RAD ---
EXAM: Supine AP view of the abdomen DATE: 07/18/2018 1:27 PM INDICATION: REACESS SM BOWEL OBSTRUCTION COMPARISON: No Prior FINDINGS: Prominent loops of small and large bowel are seen, although there is no abnormal small or large bowel dilatation. Moderate colonic stool content. No abnormal soft tissue mass effect. No suspicious calcifications are seen. Evaluation for free intraperitoneal gas is limited on this supine exam. IMPRESSION: 1. Interval decrease in size of the small bowel loops, now without evidence for bowel obstruction. Electronically signed by: Po Chaudhary MD (07/18/2018 4:33 PM) [facility]
[2018-07-18 19:00] VITALS: BP 174/68
--- NOTE | 2018-07-18 20:36 | PN ---
DATE: 07/18/2018 SUBJECTIVE: The patient is resting slightly propped up in bed, in no apparent distress. On questioning her, she denied any complaint. In particular, she had no nausea, no vomiting, no abdominal pain. She is passing gas and has multiple bowel movements. PHYSICAL EXAMINATION: GENERAL: When I examined her, she looked well and was clearly in no apparent respiratory distress. No pallor, jaundice, cyanosis, or thyromegaly. No jugular venous distension. No lower limb edema. VITAL SIGNS: Her heart rate was 72, blood pressure was 141/63, temperature was 98.1, respiratory rate was 16, and oxygen saturation was 96% on room air. HEAD, EYES, EARS, NOSE AND THROAT: Showed normocephalic, atraumatic. NECK: Supple. HEART: Showed normal first and second heart sounds. No gallop, rub or murmur. CHEST: Clear to auscultation. No crepitation or rhonchi. ABDOMEN: Distended, soft, nontender. No guarding or rigidity. No organomegaly with hernial orifices intact. Bowel sounds normal. NEUROLOGIC: She was awake, alert, responding appropriately. All cranial nerves intact. She moves extremities without difficulty. Her intake and output are incompletely recorded. LABORATORY DATA: As of yesterday, her serum sodium was 144, potassium 4.2, chloride 107, bicarbonate 24, anion gap of 13, BUN 6, creatinine 0.8, estimated GFR was 71 mL per minute. Her glucose 114 and calcium was 9. Her white cell count was 7500, hemoglobin 11.6, hematocrit 35, MCV 89 and platelet count 223,000. ASSESSMENT: 1. Small-bowel obstruction has seemed to have resolved. The patient is tolerating her clear liquid without any problem, although she was kept n.p.o. overnight. 2. Acute on chronic kidney injury, resolving. Her creatinine is down from 1.5-0.8. 3. Hypokalemia, resolved. Her most recent serum potassium is 4 mEq per liter. 4. Hypertension, well controlled after we restarted her on antihypertensive medication. Other medical problems include hypothyroidism. PLAN: Obviously await the surgical evaluation and if she remains stable, her diet will be advanced. We will discharge her home tomorrow. LAURIE LATHAM MD DR: ADRIANA/jac JOB#: [id number] / [id number]
[2018-07-18 23:00] VITALS: BP 172/65
[2018-07-19 03:00] VITALS: BP 147/55
[2018-07-19 05:19] LABS: HEMATOCRIT 32.4 % (36.0-47.0); HEMOGLOBIN 10.6 g/dL (12.0-15.5); RED BLOOD COUNT 3.65 x10^6/uL (3.50-5.40); RED CELL DISTRIBUTION WIDTH 15.2 % (11.5-14.5); WHITE BLOOD COUNT 7.8 x10^3/uL (4.0-11.0)
[2018-07-19 05:30] LABS: ALBUMIN 2.6 g/dL (3.4-5.0); ALBUMIN/GLOBULIN RATIO 0.7 (1.0-1.7); CALCIUM 8.5 mg/dL (8.5-10.1); CREATININE 0.8 mg/dL (0.6-1.0); GFR 71.3; POTASSIUM 4.1 mmol/L (3.5-5.1); TOTAL BILIRUBIN 0.8 mg/dL (0.2-1.0); TOTAL PROTEIN 6.6 g/dL (6.4-8.2)
[2018-07-19 07:00] VITALS: BP 160/64
[2018-07-19] MEDS: AMOXICILLIN/K CLAV 875/125MG TABLET. PO SCH ×2 (08:12→22:00)
[2018-07-19] MEDS: FLUoxetine HCL 20 MG CAPSULE PO SCH (08:14)
[2018-07-19] MEDS: LACTOBACILLUS RHAMNOSUS GG 1 CAPSULE. PO SCH ×2 (08:14→22:00)
[2018-07-19] MEDS: POTASSIUM CL 40MEQ D5-0.45NACL 1,000 ML IV SCH (08:27)
--- NOTE | 2018-07-19 08:33 | PDOC ---
SURGICAL PROGRESS NOTE Subjective Pt did note some cramping with clears yesterday, but resolved with stools. Stool and flatus this AM. Saeed PO Vital Signs Vital Signs Date Time Temp Pulse Resp B/P (MAP) Pulse Ox O2 Delivery O2 Flow Rate FiO2 07/19/18 08:13 63 160/64 07/19/18 07:00 97.9 16 95 Room Air 97.9 I&O Intake and Output 07/19/18 07:00 Intake Total 100 ml Balance 100 ml Intake Oral 100 ml # Voids 5 General: Alert, Oriented X3, Cooperative, No acute distress Abdomen: Soft, No tenderness Labs Laboratory Tests Test 07/19/18 04:08 07/19/18 04:28 White Blood Count 7.8 x10^3/uL (4.0-11.0) Red Blood Count 3.65 x10^6/uL (3.50-5.40) Hemoglobin 10.6 g/dL (12.0-15.5) Hematocrit 32.4 % (36.0-47.0) Mean Corpuscular Volume 89 fL (79-100) Mean Corpuscular Hemoglobin 29 pg (25-35) Mean Corpuscular Hemoglobin Concent 33 g/dL (31-37) Red Cell Distribution Width 15.2 % (11.5-14.5) Platelet Count 196 x10^3/uL (140-400) Sodium Level 140 mmol/L (136-145) Potassium Level 4.1 mmol/L (3.5-5.1) Chloride Level 106 mmol/L (98-107) Carbon Dioxide Level 22 mmol/L (21-32) Anion Gap 12 (6-14) Blood Urea Nitrogen 4 mg/dL (7-20) Creatinine 0.8 mg/dL (0.6-1.0) Estimated GFR (Cockcroft-Gault) 71.3 BUN/Creatinine Ratio 5 (6-20) Glucose Level 107 mg/dL (70-99) Calcium Level 8.5 mg/dL (8.5-10.1) Total Bilirubin 0.8 mg/dL (0.2-1.0) Aspartate Amino Transf (AST/SGOT) 20 U/L (15-37) Alanine Aminotransferase (ALT/SGPT) 9 U/L (14-59) Alkaline Phosphatase 85 U/L (46-116) Total Protein 6.6 g/dL (6.4-8.2) Albumin 2.6 g/dL (3.4-5.0) Albumin/Globulin Ratio 0.7 (1.0-1.7) Laboratory Tests Test 07/19/18 04:08 07/19/18 04:28 White Blood Count 7.8 x10^3/uL (4.0-11.0) Red Blood Count 3.65 x10^6/uL (3.50-5.40) Hemoglobin 10.6 g/dL (12.0-15.5) Hematocrit 32.4 % (36.0-47.0) Mean Corpuscular Volume 89 fL (79-100) Mean Corpuscular Hemoglobin 29 pg (25-35) Mean Corpuscular Hemoglobin Concent 33 g/dL (31-37) Red Cell Distribution Width 15.2 % (11.5-14.5) Platelet Count 196 x10^3/uL (140-400) Sodium Level 140 mmol/L (136-145) Potassium Level 4.1 mmol/L (3.5-5.1) Chloride Level 106 mmol/L (98-107) Carbon Dioxide Level 22 mmol/L (21-32) Anion Gap 12 (6-14) Blood Urea Nitrogen 4 mg/dL (7-20) Creatinine 0.8 mg/dL (0.6-1.0) Estimated GFR (Cockcroft-Gault) 71.3 BUN/Creatinine Ratio 5 (6-20) Glucose Level 107 mg/dL (70-99) Calcium Level 8.5 mg/dL (8.5-10.1) Total Bilirubin 0.8 mg/dL (0.2-1.0) Aspartate Amino Transf (AST/SGOT) 20 U/L (15-37) Alanine Aminotransferase (ALT/SGPT) 9 U/L (14-59) Alkaline Phosphatase 85 U/L (46-116) Total Protein 6.6 g/dL (6.4-8.2) Albumin 2.6 g/dL (3.4-5.0) Albumin/Globulin Ratio 0.7 (1.0-1.7) Problem List SBO, appears resolved ADAT plan d/c in AM if continued improvement MARNI AGUIAR MD Jul 19, 2018 08:33
[2018-07-19] MEDS: MORPHINE SULFATE 4 MG/ML VIAL. IV PRN ×3 (09:57→22:10)
[2018-07-19 11:00] VITALS: BP 135/59
[2018-07-19 15:00] VITALS: BP 131/54
[2018-07-19 19:00] VITALS: BP 123/51
[2018-07-19 23:00] VITALS: BP 121/49
[2018-07-19] MEDS: ONDANSETRON PF 4 MG/2 ML VIAL. IV PRN (23:00)
[2018-07-20 03:00] VITALS: BP 125/49
--- NOTE | 2018-07-20 03:40 | PN ---
DATE: 07/19/2018 SUBJECTIVE: The patient is resting slightly propped up in bed, in no apparent distress. On questioning her, she denied any complaints, in particular has no more nausea or vomiting. She has bowel movement. No abdominal pain. She was started on a clear liquid and advanced as tolerated. PHYSICAL EXAMINATION: GENERAL: When I examined her this afternoon, she looked well and was clearly in no apparent respiratory distress, pale. No jaundice, cyanosis, or thyromegaly. No jugular venous distension. No lower limb edema. VITAL SIGNS: Her heart rate was 67, blood pressure 135/59, temperature was 97.7, respiratory rate was 18 and oxygen saturation was 96%. ABDOMEN: Soft, nontender. There is no guarding or rigidity. No organomegaly. All hernial orifices intact. Bowel sounds normal. Her intake and output were incompletely recorded. LABORATORY DATA: This morning showed a serum sodium 140, potassium 4.1, chloride 106, bicarbonate 22, anion gap of 12, BUN 4, creatinine 0.8, estimated GFR was 71 mL per minute. Her glucose 107, calcium was 8.5. Total bilirubin, AST, ALT, alkaline phosphatase were normal. Total protein was 6.6, albumin 2.6. White cell count was 7800, hemoglobin 10, hematocrit 32, MCV 89 and platelet count of 196,000. ASSESSMENT: 1. Small-bowel obstruction that has resolved. The patient is tolerating clears and her diet will be advanced. 2. [id number] kidney injury, resolved. Her creatinine came down from 1.5-0.8. 3. Hypokalemia, resolved. Her most recent serum potassium is up to 4 mEq per liter. 4. Hypertension, much better controlled now. We will start her on oral antihypertensive medication. 5. Hypothyroidism. PLAN: To advance her diet as tolerated. She has no problems. She can be discharged home tomorrow. LAURIE LATHAM MD DR: ADRIANA/jac JOB#: [id number] / [id number]
[2018-07-20 07:00] VITALS: BP 127/42
--- NOTE | 2018-07-20 08:44 | PDOC ---
HALEY NOYOLA [employer] 07/20/18 0844: SURGICAL PROGRESS NOTE Subjective tolerating diet no pain today had some intermittent pain yesterday no n/v having stools Vital Signs Vital Signs Date Time Temp Pulse Resp B/P (MAP) Pulse Ox O2 Delivery O2 Flow Rate FiO2 07/20/18 07:57 Room Air 07/20/18 07:00 98.1 60 16 127/42 (70) 95 98.1 I&O Intake and Output 07/20/18 07:00 # Voids 4 # Bowel Movements 1 General: Alert, Oriented X3, Cooperative, No acute distress Abdomen: Soft, No tenderness Labs Laboratory Tests Test 07/19/18 04:08 07/19/18 04:28 White Blood Count 7.8 x10^3/uL (4.0-11.0) Red Blood Count 3.65 x10^6/uL (3.50-5.40) Hemoglobin 10.6 g/dL (12.0-15.5) Hematocrit 32.4 % (36.0-47.0) Mean Corpuscular Volume 89 fL (79-100) Mean Corpuscular Hemoglobin 29 pg (25-35) Mean Corpuscular Hemoglobin Concent 33 g/dL (31-37) Red Cell Distribution Width 15.2 % (11.5-14.5) Platelet Count 196 x10^3/uL (140-400) Sodium Level 140 mmol/L (136-145) Potassium Level 4.1 mmol/L (3.5-5.1) Chloride Level 106 mmol/L (98-107) Carbon Dioxide Level 22 mmol/L (21-32) Anion Gap 12 (6-14) Blood Urea Nitrogen 4 mg/dL (7-20) Creatinine 0.8 mg/dL (0.6-1.0) Estimated GFR (Cockcroft-Gault) 71.3 BUN/Creatinine Ratio 5 (6-20) Glucose Level 107 mg/dL (70-99) Calcium Level 8.5 mg/dL (8.5-10.1) Total Bilirubin 0.8 mg/dL (0.2-1.0) Aspartate Amino Transf (AST/SGOT) 20 U/L (15-37) Alanine Aminotransferase (ALT/SGPT) 9 U/L (14-59) Alkaline Phosphatase 85 U/L (46-116) Total Protein 6.6 g/dL (6.4-8.2) Albumin 2.6 g/dL (3.4-5.0) Albumin/Globulin Ratio 0.7 (1.0-1.7) Problem List dc if ok with primary MARNI AGUIAR MD 07/20/18 1058: SURGICAL PROGRESS NOTE Assessment/Plan Pt seen and examined. Agree with Ms. Noyola's note D/w Dr. Wilder Pt doing well, trevor PO, passing stools abd soft, ND, NTTP OK to d/c f/u PRN HALEY NOYOLA APRN Jul 20, 2018 08:44 MARNI AGUIAR MD Jul 20, 2018 10:58
[2018-07-20] MEDS: FLUoxetine HCL 20 MG CAPSULE PO SCH (08:59)
[2018-07-20] MEDS: AMOXICILLIN/K CLAV 875/125MG TABLET. PO SCH (08:59)
[2018-07-20] MEDS: LACTOBACILLUS RHAMNOSUS GG 1 CAPSULE. PO SCH (09:00)
[2018-07-20 11:00] VITALS: BP 136/52
[2018-07-20] MEDS: ONDANSETRON ODT 4 MG TAB.RAPDIS. PO PRN (11:12)
[2018-07-20] MEDS ORDERED: ONDANSETRON ODT 4 MG TAB.RAPDIS. PO PRN (11:15)
--- NOTE | 2018-07-20 14:10 | DS ---
DATE OF DISCHARGE: 07/20/2018 HOSPITAL COURSE: The patient is a 68-year-old female patient who was transferred from [facility] where she was admitted with recurrent bouts of nausea, vomiting and abdominal pain that started about 24 hours prior to her arrival to the Emergency Room. She had a CT scan of the abdomen that showed small-bowel obstruction with transition point most likely in the distal small bowel proximal to the ileocolic anastomosis. She was kept n.p.o. and had an NG tube to intermittent suction, started on IV fluid and pain medication, and was transferred to [facility] to consult the surgical team and to monitor her electrolytes and replenish them as needed. The patient did very well. The NG tube was clamped and eventually was removed. She was started on a clear liquid diet and advanced as tolerated. She has had no further episodes of nausea, vomiting, no abdominal pain. She is tolerating her diet. She is passing gas and has had bowel movement. A decision was made to discharge her home to follow with her primary care physician. PHYSICAL EXAMINATION: GENERAL: When I examined her this morning, she was resting slightly propped up in bed, in no apparent respiratory distress. No pallor, jaundice, cyanosis, lymphadenopathy, or thyromegaly. No jugular venous distension. No lower lymphedema. VITAL SIGNS: Her heart rate was 60, blood pressure 127/42, temperature was 98.1, respiratory rate was 16, and oxygen saturation was 95% on room air. HEAD, EYES, EARS, NOSE AND THROAT: Showed normocephalic, atraumatic. NECK: Supple. CARDIAC: Normal first and second heart sounds. No gallop, rub or murmur. CHEST: Clear to auscultation. No crepitation or rhonchi. ABDOMEN: Distended, soft, nontender. No guarding or rigidity. No organomegaly. All hernial orifices intact. Bowel sounds normal. NEUROLOGIC: She was awake, alert, responding appropriately. All cranial nerves intact. She moves extremities without difficulty. She ambulates without assistance or assistive devices. INS AND OUTS: Her intake and output are incompletely recorded. LABORATORY DATA: As of yesterday showed a white cell count of 7800, hemoglobin 11, hematocrit 32, MCV 89 and platelet count 296,000. Her chemistry showed a serum sodium 140, potassium 4.1, chloride 106, bicarbonate 22, anion gap of 12, BUN 4, creatinine 0.8, estimated GFR was 71 mL per minute. Her glucose 107, calcium was 8.5. Total bilirubin, AST, ALT, alkaline phosphatase were normal. Total protein was 6.6, albumin was 2.6. DISCHARGE MEDICATIONS: The patient was discharged home to continue with her fluoxetine for Prozac 20 mg once a day, nifedipine for Procardia 90 mg once a day, and multivitamin 1 tablet once a day. FINAL DISCHARGE DIAGNOSES: Small-bowel obstruction, likely due to adhesion has resolved spontaneously without requiring any surgical intervention. Other medical problems include hypertension, hypothyroidism. LAURIE LATHAM MD DR: ADRIANA/jac JOB#: [id number] / [id number]
[2018-07-20 15:00] VITALS: BP 137/59
== END 2018-07-20 16:30 | disposition home or self-care (01) | DRG 388 ==
LOC: 4 NORTH 07-12 00:12
PROVIDERS: ADMIT Internal Medicine; ATTEND Internal Medicine
PROC: 0D9670Z Drainage of Stomach with Drainage Device, Via Natural or Artificial Opening (ICD-10-PCS; principal; 2018-07-12)
DX: K56.50 Intestinal adhesions [bands], unspecified as to partial versus complete obstruction (principal); N17.0 Acute kidney failure with tubular necrosis; E87.6 Hypokalemia; E03.9 Hypothyroidism, unspecified; F17.210 Nicotine dependence, cigarettes, uncomplicated; I12.9 Hypertensive chronic kidney disease with stage 1 through stage 4 chronic kidney disease, or unspecified chronic kidney disease; N18.9 Chronic kidney disease, unspecified; F32.9 Major depressive disorder, single episode, unspecified; H26.9 Unspecified cataract; Z80.1 Family history of malignant neoplasm of trachea, bronchus and lung; Z82.49 Family history of ischemic heart disease and other diseases of the circulatory system; Z83.3 Family history of diabetes mellitus; Z90.710 Acquired absence of both cervix and uterus; Z93.3 Colostomy status; Z90.722 Acquired absence of ovaries, bilateral
CPT/HCPCS: 36415; 74018; 74021; 74250; 80048; 80053; 83615; 85025; 85027; 99406; J0360; J2060; J2270; J2405; J2543; J7030; J7042; Q0162